=== PATIENT | male | born 1970 | race Caucasian/White ===

== ENCOUNTER 2024-01-16 20:30 | Inpatient (IN) | payer OTHER, SELFPAY ==
[2024-01-16 13:59] VITALS: BMI 31.7
[2024-01-16 14:04] VITALS: BP 176/107
[2024-01-16 14:59] LABS: % Basophils 0.5 % (0-2); % Eosinophils 0.9 % (0-6); % Immature Granulocytes 0.4 % (0-0.5); % Lymphocytes 17.7 % (20.5-51.1); % Monocytes 7.9 % (1.7-9.3); % Neutrophils 72.6 % (42.2-75.2); Absolute Eosinophils 0.1 10^3/uL (0-0.7); Absolute Lymphocytes 1.3 10^3/uL (1.2-3.4); Absolute Monocytes 0.6 10^3/uL (0.1-0.6); Absolute Neutrophils 5.4 10^3/uL (1.4-6.5); Hematocrit 46.5 % (39.0-52.0); Hemoglobin 16.4 g/dL (13.0-18.0); Mean Corp Hgb Conc. 35.3 g/dL (33.0-37.0); Mean Corpuscular Hgb 30.9 pg (27.0-31.0); Mean Corpuscular Volume 87.6 fL (80.0-94.0); Mean Platelet Volume 10.1 fL (7.4-10.4); Nucleated Red Blood Cells % 0 % (-); Platelet Count 187 10^3/uL (130-400); Red Blood Cell Count 5.31 10^6/uL (4.70-6.10); Red Cell Dist. Width 12.2 % (11.5-14.5); White Blood Cell Count 7.4 10^3/uL (4.8-10.8)
[2024-01-16 15:00] VITALS: BP 147/103
[2024-01-16] MEDS: ZOFRAN 4 MG IV ×2 (15:04→20:15)
[2024-01-16 15:23] LABS: ALT (SGPT) 38 U/L (0-50); AST (SGOT) 23 U/L (17-59); Albumin 4.7 g/dl (3.5-5.0); Alkaline Phosphatase 62 U/L (38-126); Blood Urea Nitrogen 21 mg/dl (9-20); Calcium 9.8 mg/dl (8.4-10.2); Carbon Dioxide 30 mmol/L (22-30); Chloride 100 mmol/L (98-107); Estimated Creatinine Clearance 113 ml/min; Glucose 100 mg/dl (70-99); Lipase 59 U/L (23-300); Sodium 140 mmol/L (135-145); Total Bilirubin 1.2 mg/dl (0.2-1.3); Total Protein 7.2 g/dl (6.3-8.2); eGFR > 60.00
[2024-01-16] MEDS: MORPHINE SULFATE 4 MG IV (15:24)
[2024-01-16 16:00] VITALS: BP 157/91
--- NOTE | 2024-01-16 16:05 | ED.GENMED ---
History of Present Illness
<Jayshree Lema PA-C - Last Filed: 01/17/24 08:07>
General
Chief Complaint: Abdominal Pain
Time Seen by Provider: 01/16/24 14:27
History of Present Illness
History of Present Illness:
PT IS A 53 Y/O M
h/o PFO repair
cva x 2
on xarelto
here with generalized/lower abd pain after waking this morning
drank a few drinks last night but didn't feel overly intoxicated
had normal BM
nausea and the pain is moderate and felt really distended and like his belly was gonna explode he says
he has not had cp, sob, fever,
in the parking lot, pt vmoited
still has the pain and nausea
no known vascular disease in abdomen
Past History
<Jayshree Lema PA-C - Last Filed: 01/17/24 08:07>
Past History
ED Past Medical History: CVA, HTN, Hypercholesterolemia and Other (Covid Apr 2020)
Social History
Tobacco: Non-smoker
Family History
Family History: Negative Diabetes, Hypertension or CAD
Review of Systems
<BUD Stahl Last Filed: 01/17/24 08:07>
Review of Systems
Allergies reviewed?: Yes
All Other Systems: Not applicable
Phy Exam
<Jayshree Lema PA-C - Last Filed: 01/17/24 08:07>
Physical Exam
Physical Exam:
GENERAL: Alert , in no apparent distress
EYE: pupils equal and reactive
NECK: Supple
ENT: o/p clr, mmm.
CARDIAC: Regular rate and rhythm .
LUNGS: Clear breath sounds bilaterally, no acute respiratory distress, no wheezes/rales/rhonchi
ABDOMEN: Soft, mild abdominal bloating, no significant fluid wave, normal bowel sounds, mild tenderness to the l periumbilical
NEUROLOGICAL: Alert and oriented, no focal neuro deficits
SKIN: Warm and dry, skin intact.
MUSCULOSKELETAL: No edema, well perfused. neg naeem's sign
PSYCH: Normal and appropriate interaction.
Course
<Jayshree Lema PA-C - Last Filed: 01/17/24 08:07>
Orders/Labs/Results
Orders:
Orders
01/16/24 14:43
Electrocardiogram (*1) Urgent
Reason for Study: Chest Pain
CT Abd/Pel (IV only)-DH only Urgent
Comment:
Reason For Exam: abdominal pain, bloating, nauesa/vomiting
EKG- Treatment ONCE
Ondansetron Injectable [Zofran] 4 mg IV NOW STA
01/16/24 14:50
Complete Blood Count/With Diff Urgent
Comprehensive Metabolic Panel Urgent
Lipase Urgent
01/16/24 Dinner
NPO
Allow oral meds: Yes
Allow clear liquids: No
01/16/24 15:20
Morphine Sulfate 4 mg IV NOW STA
01/16/24 16:45
Urinalysis Reflex To Culture Urgent
Date Specimen was Collected: 01/16/24
Time Specimen was Collected: 16:43
01/16/24 19:32
Add On- LAB Urgent
Tests Added?: lactate
01/16/24 20:01
Admit/Transfer Patient As Directed
Co-Sign Provider:
Level of Care: Inpatient admission
Assign to:: Medical/Surgical
Physician / Group: halima
Diagnosis: SBO
Reason for Hospitalization: SBO
Expected length of stay greater than two midnights?: Yes
ELOS- Estimated Length of Stay in days: 2
I certify the patient meets the requirements for IP care: Yes
Code Status As Directed
Resuscitation Status: Full Code
PRN Pain Medication Management As Directed
May give lesser potent ordered pain med per pt: Yes
preference::
Protocol:: Medication orders for pain may be administered in a
manner that supports deferring to patient preference
when the pt is:
- Requesting an ordered lesser potent pain medication.
Least to most potent pain medications are defined
as: acetaminophen < NSAID < tramadol < opioids
(morphine, oxycodone, hydromorphone).
- Requesting a lesser dose of the same medication IF
ORDERED.
- Requesting a less intrusive route of administration
if both routes are prescribed by the provider (PO <
IV).
01/16/24 20:06
Lactic Acid Urgent
01/16/24 20:13
Ondansetron Injectable [Zofran] 4 mg IV Q6HPRN PRN
01/16/24 21:23
0.9% Sodium Chloride 1000 ml [Nss] 1,000 ml IV 120 mls/hr
Albuterol [ProAIR HFA INHALER] 2 puff INH R Q4HPRN PRN
HYDROmorphone [Dilaudid] 0.5 mg IV Q4HPRN PRN
01/16/24 21:23
Activity As Directed
Activity Level: As Tolerated
Pneumatic Compression Sleeves As Directed
Type: Knee high
Vital Signs As Directed
Frequency: Per unit guidelines
DX Deep Vein Thrombosis Video Routine
01/17/24 06:03
Complete Blood Count/With Diff IN AM
Comprehensive Metabolic Panel IN AM
01/17/24 08:00
Diltiazem Extended Release [Cardizem Cd] 180 mg PO DAILY
Abnormal Lab Results
01/16/24
14:50
Lymphocytes % 17.7 L %
(20.5-51.1)
BUN 21 H mg/dl
(9-20)
Glucose 100 H mg/dl
(70-99)
01/16/24 14:50
01/16/24 14:50
Vital Signs
Initial and Last Documented VS:
Initial Vital Signs
Temp Pulse Resp BP Pulse Ox
98.4 F 72 18 176/107 99
01/16/24 14:04 01/16/24 14:04 01/16/24 14:04 01/16/24 14:04 01/16/24 14:04
Last Documented Vital Signs
Temp Pulse Resp BP Pulse Ox
98.5 F 63 17 156/81 95
01/17/24 07:58 01/17/24 07:58 01/17/24 07:58 01/17/24 07:58 01/17/24 07:58
<Rome Mckenzie PA-C - Last Filed: 01/16/24 19:14>
Orders/Labs/Results
Orders:
Orders
01/16/24 14:43
Electrocardiogram (*1) Urgent
Reason for Study: Chest Pain
CT Abd/Pel (IV only)-DH only Urgent
Comment:
Reason For Exam: abdominal pain, bloating, nauesa/vomiting
EKG- Treatment ONCE
Ondansetron Injectable [Zofran] 4 mg IV NOW STA
01/16/24 14:50
Complete Blood Count/With Diff Urgent
Comprehensive Metabolic Panel Urgent
Lipase Urgent
01/16/24 Dinner
NPO
Allow oral meds: Yes
Allow clear liquids: No
01/16/24 15:20
Morphine Sulfate 4 mg IV NOW STA
01/16/24 16:45
Urinalysis Reflex To Culture Urgent
Date Specimen was Collected: 01/16/24
Time Specimen was Collected: 16:43
01/16/24 19:32
Add On- LAB Urgent
Tests Added?: lactate
01/16/24 20:01
Admit/Transfer Patient As Directed
Co-Sign Provider:
Level of Care: Inpatient admission
Assign to:: Medical/Surgical
Physician / Group: halima
Diagnosis: SBO
Reason for Hospitalization: SBO
Expected length of stay greater than two midnights?: Yes
ELOS- Estimated Length of Stay in days: 2
I certify the patient meets the requirements for IP care: Yes
Code Status As Directed
Resuscitation Status: Full Code
PRN Pain Medication Management As Directed
May give lesser potent ordered pain med per pt: Yes
preference::
Protocol:: Medication orders for pain may be administered in a
manner that supports deferring to patient preference
when the pt is:
- Requesting an ordered lesser potent pain medication.
Least to most potent pain medications are defined
as: acetaminophen < NSAID < tramadol < opioids
(morphine, oxycodone, hydromorphone).
- Requesting a lesser dose of the same medication IF
ORDERED.
- Requesting a less intrusive route of administration
if both routes are prescribed by the provider (PO <
IV).
01/16/24 20:06
Lactic Acid Urgent
01/16/24 20:13
Ondansetron Injectable [Zofran] 4 mg IV Q6HPRN PRN
01/16/24 21:23
0.9% Sodium Chloride 1000 ml [Nss] 1,000 ml IV 120 mls/hr
Albuterol [ProAIR HFA INHALER] 2 puff INH R Q4HPRN PRN
HYDROmorphone [Dilaudid] 0.5 mg IV Q4HPRN PRN
01/16/24 21:23
Activity As Directed
Activity Level: As Tolerated
Pneumatic Compression Sleeves As Directed
Type: Knee high
Vital Signs As Directed
Frequency: Per unit guidelines
DX Deep Vein Thrombosis Video Routine
01/17/24 06:03
Complete Blood Count/With Diff IN AM
Comprehensive Metabolic Panel IN AM
01/17/24 08:00
Diltiazem Extended Release [Cardizem Cd] 180 mg PO DAILY
Abnormal Lab Results
01/16/24
14:50
Lymphocytes % 17.7 L %
(20.5-51.1)
BUN 21 H mg/dl
(9-20)
Glucose 100 H mg/dl
(70-99)
01/16/24 14:50
01/16/24 14:50
Vital Signs
Initial and Last Documented VS:
Initial Vital Signs
Temp Pulse Resp BP Pulse Ox
98.4 F 72 18 176/107 99
01/16/24 14:04 01/16/24 14:04 01/16/24 14:04 01/16/24 14:04 01/16/24 14:04
Last Documented Vital Signs
Temp Pulse Resp BP Pulse Ox
98.5 F 63 17 156/81 95
01/17/24 07:58 01/17/24 07:58 01/17/24 07:58 01/17/24 07:58 01/17/24 07:58
<Jayshree Lema PA-C - Last Filed: 01/17/24 08:07>
MDM/Problems Addressed
Differential Diagnosis Includes:
divertic, AAA, dissection, gastritis, pnaireatits
MDM/Problems Addressed:
53 y/o M
h/o cva
here with abd pain,bloating nausea
no h/o alcohol abuse
mild tedneress, more pain than pt is tender
will w/u with labs, ekg, ct scan
d/w ed attending who agreed;
<oRme Mckenzie PA-C - Last Filed: 01/16/24 19:14>
*Critical Care Note
Total Time (30-74mins, 75-104mins- exclusive of procedures): Not Applicable
<Rome Mckenzie PA-C - Last Filed: 01/16/24 19:14>
Update Note
Update Note:
01/16/2024 1908 PM care assumed from Jayshree Lema PA-C pending CT images. CT report suggestive of developing small bowel obstruction. On reassessment the patient does have significant abdominal discomfort and nausea after attempting to drink
oral fluids. Given his worsening symptoms despite analgesics will place NG tube and admit to the hospitalist service for observation and reevaluation in the morning.
ED Attending Note
<Jayshree Lema PA-C - Last Filed: 01/17/24 08:07>
-
Portions of this chart may have been created with voice recognition software.� Occasional wrong word or��sound alike� substitutions may have occurred due to the inherent limitations of voice recognition software.
Discharge Plan
Departure
Patient Disposition: Admit
Date of Disposition: 01/16/24
Time of Disposition: 19:09
Presentation/result/management discussed w/ accepting MD/DO: Hospitalist
Discharge Problem:
Partial small bowel obstruction
Interventions
Interventions:
*Risk Screen - Suicide Last Done: 01/16/24 14:04
*General Assessment Last Done: 01/16/24 14:04
*Neglect/Abuse Screening Last Done: 01/16/24 14:04
ED- Fall Risk Assessment Last Done: 01/16/24 15:07
*ED COVID-19 Vaccine History Last Done: 01/16/24 21:36
*Nursing Disposition Last Done: 01/16/24 21:36
XW-Zuufii-Fpqaqbtqkm Assessment Last Done: 01/16/24 15:07
Discharge Date and Time
Discharge Date/Time: 01/16/24 21:37
[2024-01-16 17:04] LABS: Urine Albumin Negative (Neg - Trace); Urine Bilirubin Negative (Negative); Urine Character Clear (Clear); Urine Color Yellow; Urine Glucose Negative (Negative); Urine Ketone Negative (Negative); Urine Leukocyte Negative (Negative); Urine Nitrite Negative (Negative); Urine Occult Blood Negative (Negative); Urine Urobilinogen Negative (Neg - 1+)
--- NOTE | 2024-01-16 20:03 | HPS.HSE ---
Family Physician
-
Family Physician: Erick Beaver
Chief Complaint
-
abdominal pain
History of Present Illness
53-year-old male past medical history of cryptogenic CVA, atrial fibrillation on Xarelto, patent khan ovale status post repair, cardiomyopathy, hypertension, presenting with generalized lower abdominal pain after rehab this morning. He had 6
alcoholic drinks last night he did not feel intoxicated. He was only been drinking on the weekends recently. He had a normal bowel movement this morning although smaller. He has nausea and abdominal distention. He denies chest pain or shortness
of breath. He denies fevers or chills.
He denies any prior abdominal surgeries.
Medical History
Past Medical History
Past Medical History: Reports Other (cryptogenic CVA, atrial fibrillation on Xarelto, patent khan ovale status post repair, cardiomyopathy, hypertension,)
Past Surgical History: Reports None
Social History
Tobacco: Non-smoker
Alcohol: Occasional
Drug: None
Family History
Family History: Not pertinent
Allergies / Home Medications
Allergies reflects when Allergies were last updated in [facility].
Home Medications with original date entered in [facility]
Allergy/Medication List:
Allergies
Allergy/AdvReac Type Severity Reaction Status Date / Time
azithromycin Allergy Hives Verified 01/16/24 14:04
[From Zithromax Z-Tj]
Home Medications
atorvastatin 40 mg tablet 40 mg PO DAILY High cholesterol 04/21/20
albuterol sulfate 90 mcg/actuation aerosol inhaler 2 puff inhalation R Q4HPRN PRN sob/cough ##2 05/01/20
diltiazem HCl 180 mg capsule,24 hr,extended release 180 mg PO DAILY 01/13/22
pgwqrwrv-paupdtzu-udqty acid 400 mcg-vit K 20 mcg-lycop 300 mcg tablet 1 tab PO DAILY 01/13/22
rivaroxaban 20 mg tablet (Xarelto) 20 mg PO DAILY 01/13/22
famotidine 40 mg tablet 40 mg PO DAILY 01/16/24
Review of Systems
-
History Source: Patient
A 12 point ROS was completed and negative except as noted: Yes
Constitutional: Reports No Symptoms
EENT: Reports No Symptoms
Respiratory: Reports No Symptoms
Cardiac: Reports No Symptoms
Abdomen/GI: Reports See HPI
: Reports No Symptoms
Musculoskeletal: Reports No Symptoms
Skin: Reports No Symptoms
Neurological: Reports No Symptoms
Endocrine: Reports No Symptoms
Hematologic/Lymphatic: Reports No Symptoms
Psych: Reports No Symptoms
Physical Exam
Vital Signs
Vital Signs
Temp Pulse Resp BP Pulse Ox
98.4 F 79 21 157/91 97
01/16/24 14:04 01/16/24 18:30 01/16/24 18:30 01/16/24 16:00 01/16/24 18:30
Physical Exam
General: Well Developed, Well Nourished and No Apparent Distress
HEENT: NormoCephalic, Moist mucous membranes and Atraumatic
Respiratory: Clear
Cardiac: S1/S2 and Regular Rhythm; No Murmur or Rub
GI: Soft, Normal Bowel Sounds, Tender and Distended; No Organomegaly
Rectal: Deferred by Provider
Musculoskeletal: No Clubbing, No Cyanosis and No Edema
Skin: No Rash
Neuro: Nonfocal/grossly intact
Laboratory Results
-
01/16/24 14:50
01/16/24 14:50
Laboratory Results
Total Bilirubin 1.2 mg/dl (0.2-1.3) 01/16/24 14:50
AST 23 U/L (17-59) 01/16/24 14:50
ALT 38 U/L (0-50) 01/16/24 14:50
Alkaline Phosphatase 62 U/L (38-126) 01/16/24 14:50
Lipase 59 U/L (23-300) 01/16/24 14:50
Data Reviewed
-
Lab Data: Labs Reviewed by me
Old Records: Reviewed
Impression/Plan
-
IMPRESSION:
PLAN:
# Mild small bowel obstruction
-CT abdomen pelvis shows developing mild small bowel obstruction in the mid left abdomen versus ileus
-N.p.o.
-IV fluids
-Zofran, Dilaudid
-NG tube to be placed
-Hold Xarelto
-General Surgery consulted
History of cryptogenic CVA
Patent khan ovale status post repair
History of paroxysmal atrial fibrillation
-Hold Xarelto
-Continue diltiazem if able
History of cardiomyopathy
Essential hypertension
Full code
DVT prophylaxis�SCDs
N.p.o.
[2024-01-16 21:33] VITALS: BP 173/99; BMI 30.9
[2024-01-16] MEDS: NSS 1000 IV (21:48)
[2024-01-16 23:20] VITALS: BP 162/92
--- NOTE | 2024-01-16 23:42 | TRANSFER ---
Received pt from ED via stretcher. Pt able to transfer to standing scale with minimal assistance. AAO*4, VSS, patient denies any chest pain or shortness of breath. NGT (R Nare) auscultated +placement and hooked to low int. suction as per order.
All orders reviewed and acknowledged. Plan of care discussed with patient. Bed in low position with call wiseman in reach.
[2024-01-17] MEDS: ANESTHETIC LOZENGE 1 LOZENGE PO ×3 (02:31→20:34)
[2024-01-17] MEDS: NSS 1000 IV ×3 (05:29→20:33)
[2024-01-17 06:25] LABS: % Basophils 0.2 % (0-2); % Eosinophils 0.6 % (0-6); % Immature Granulocytes 0.4 % (0-0.5); % Lymphocytes 13.8 % (20.5-51.1); % Monocytes 4.9 % (1.7-9.3); % Neutrophils 80.1 % (42.2-75.2); Absolute Eosinophils 0.1 10^3/uL (0-0.7); Absolute Lymphocytes 1.4 10^3/uL (1.2-3.4); Absolute Monocytes 0.5 10^3/uL (0.1-0.6); Absolute Neutrophils 8.1 10^3/uL (1.4-6.5); Hematocrit 45.2 % (39.0-52.0); Hemoglobin 15.7 g/dL (13.0-18.0); Mean Corp Hgb Conc. 34.7 g/dL (33.0-37.0); Mean Corpuscular Hgb 30.7 pg (27.0-31.0); Mean Corpuscular Volume 88.3 fL (80.0-94.0); Mean Platelet Volume 10.3 fL (7.4-10.4); Nucleated Red Blood Cells % 0 % (-); Platelet Count 194 10^3/uL (130-400); Red Blood Cell Count 5.12 10^6/uL (4.70-6.10); Red Cell Dist. Width 12.2 % (11.5-14.5); White Blood Cell Count 10.1 10^3/uL (4.8-10.8)
[2024-01-17 06:59] LABS: ALT (SGPT) 32 U/L (0-50); AST (SGOT) 23 U/L (17-59); Albumin 4.3 g/dl (3.5-5.0); Alkaline Phosphatase 56 U/L (38-126); Blood Urea Nitrogen 23 mg/dl (9-20); Carbon Dioxide 26 mmol/L (22-30); Chloride 103 mmol/L (98-107); Estimated Creatinine Clearance 102 ml/min; Glucose 116 mg/dl (70-99); Potassium 4.2 mmol/L (3.5-5.1); Sodium 139 mmol/L (135-145); Total Bilirubin 1.5 mg/dl (0.2-1.3); Total Protein 6.7 g/dl (6.3-8.2); eGFR > 60.00
[2024-01-17 07:58] VITALS: BP 156/81
[2024-01-17 07:58] LABS: C-Reactive Protein < 5.00 mg/L (0.0-10.00)
[2024-01-17] MEDS: CARDIZEM CD 180 MG PO (10:03)
[2024-01-17] MEDS: PROTONIX IV 40 MG IV (12:02)
[2024-01-17] MEDS: NSS (PRESERVATIVE FREE) 10 ML IV (12:02)
--- NOTE | 2024-01-17 12:34 | CM ---
publishing manager reviewed patient's chart and met with patient and patient lives with a friend in a 2 story home, vianneyrhonda is indepdent with adl's and ambulation, no dme, vianneyrhonda drives.
PCP: Dr Summers
Pharmacy: [facility] in [place]
Plan; Home when stable, no needs.
--- NOTE | 2024-01-17 13:07 | CON.GS ---
Medical History
-
Chief Complaint: Abdominal pain
History of Present Illness:
Mr Desai is a 53 yo male with a history of AFIB on Xarelto (LD 01/15), cryptogenic CVA, and PFO with repair with no prior abdominal surgeries who developed acute onset of severe abdominal pain yesterday which continued to worsen with development
of nausea and intractable vomiting. He notes that his abdomen was firm and quite distended on arrival to the ED. An NGT was placed with symptomatic relief. His last BM was yesterday morning before onset of symptoms and he has not had one since
although he does note he has passed some flatus today. He reports he did have some diarrhea a few days prior to onset of these symptoms but it quickly resolved. He denies fevers or chills. He does note a sore throat with the NGT in place.
Past Medical History
Past Medical History: Arrhythmias (afib on xarelto), CVA (cryptogenic in 2017), HTN and Other (PFO, cardiomyopathy)
Past Surgical History: Cardiac (PFO repair)
Social History
Tobacco: Non-Smoker
Alcohol: Occasional (some binge drinking on weekends)
Family History
Family History: Reviewed & Not Pertinent
Allergies / Home Medications
Allergy/AdvReac Type Severity Reaction Status Date / Time
azithromycin Allergy Hives Verified 01/16/24 14:04
[From Zithromax Z-Tj]
�Medication �Instructions �Recorded �Confirmed �Type
atorvastatin 40 mg tablet 40 mg PO DAILY High cholesterol 04/21/20 01/16/24 History
albuterol sulfate 90 mcg/actuation 2 puff inhalation R Q4HPRN PRN 05/01/20 01/16/24 Rx
aerosol inhaler sob/cough ##2
diltiazem HCl 180 mg capsule,24 180 mg PO DAILY Arrhythmia 01/13/22 01/16/24 History
hr,extended release
zzuscgxr-ynzktdfe-vrkth acid 400 1 tab PO DAILY Supplement 01/13/22 01/16/24 History
mcg-vit K 20 mcg-lycop 300 mcg
tablet
rivaroxaban 20 mg tablet (Xarelto) 20 mg PO DAILY Blood Clot 01/13/22 01/16/24 History
Prevention/Tx
famotidine 40 mg tablet 40 mg PO DAILY Gastrointestinal 01/16/24 01/16/24 History
Issue
Review of Systems
-
History Source: Patient and Family
A 10 point review of systems was completed, and was negative except as per HPI.
Physical Exam
Vital Signs
Temp Pulse Resp BP Pulse Ox
98.5 F 63 17 156/81 95
01/17/24 07:58 01/17/24 07:58 01/17/24 07:58 01/17/24 07:58 01/17/24 07:58
01/16/24 01/17/24 01/18/24
06:59 06:59 06:59
Actual Weight 106.339 kg
Body Mass Index (BMI) 30.9
Lab Results
01/17/24 06:03
01/17/24 06:03
WBC 10.1 10^3/uL (4.8-10.8) 01/17/24 06:03
Hgb 15.7 g/dL (13.0-18.0) 01/17/24 06:03
Hct 45.2 % (39.0-52.0) 01/17/24 06:03
Plt Count 194 10^3/uL (130-400) 01/17/24 06:03
Abs Immat Gran (auto) 0.0 10^3/uL (0-0.05) 01/17/24 06:03
Neutrophils % 80.1 % (42.2-75.2) H 01/17/24 06:03
Physical Exam
General: Well Developed and Well Nourished
HEENT: Moist Mucous Membranes
Respiratory: Non Labored Respirations
GI: Soft, Tender (mild to RLQ), Distended (mild to moderate) and Other (bilious output from NGT)
Skin: Warm and Dry
Neuro: Awake, Alert and AO x 3
Psych: Calm
Data Reviewed
-
CT Scan: Image Personally Visualized and interpreted, Report Reviewed by me, Discussed with Physician and Discussed with Patient
Labs: Labs Reviewed by me, Discussed with Physician and Discussed with Patient
Assessment / Plan
-
Mr Desai is a 53 yo male with a history of AFIB on Xarelto (LD 01/15), cryptogenic CVA, and PFO with repair with no prior abdominal surgeries who developed acute onset of severe abdominal pain yesterday which continued to worsen with development
of nausea and intractable vomiting. NGT placed in the ED with improvement in symptoms. Now passing some flatus. CT imaging without Po contrast reviewed. Dilated loops of bowel in the left abdomen, possible ileus vs partial sbo of uncertain etiology.
No leukocytosis. AFVSS.
--Hold Xarelto in case surgical intervention warranted
--Continue NGT to suction
--Plan SBFT with oral contrast to further evaluate
--NPO except ice chips
--Medical management as per primary team
--- NOTE | 2024-01-17 13:45 | W.PN.HOSP.TC ---
Today's Communication/Plan
-
for SBFT today
maintain NPO/IVF/supportive care
Assessment / Plan
Assessment / Plan
CTG a/p
Developing mild small bowel obstruction in the mid left abdomen versus ileus.
Moderate diverticulosis.
Mild prostate hypertrophy

1. Small bowel obstruction
-Comes in with nausea vomiting, inability to pass bowel movement
-CT abdomen pelvis showing possible early small bowel obstruction
-Patient denies of having any abdominal surgery in the past/no previous episodes of small bowel obstruction
-NG tube placed and currently on intermittent suction
-Maintain on IV fluids/n.p.o.
-Maintain on antiemetics/pain medication
-General Surgery consulted and help appreciated, plan to get SBFT today
2. Cryptogenic CVA
h/o Patent khan ovale status post repair
History of paroxysmal atrial fibrillation
-Hold Xarelto
-Continue diltiazem if able
History of cardiomyopathy
Essential hypertension
Full code
DVT prophylaxis�SCDs
Total time spent : 52 mins
Anticipated Discharge: > 48 hours
Subjective/Interval History
-
Date of Service: January 17, 2024
Denies having abdominal pain/nausea
passing some gas
Objective Data
-
Labs:
Laboratory Results
01/17/24
06:03
WBC 10.1
Hgb 15.7
Hct 45.2
Plt Count 194
Sodium 139
Potassium 4.2
Chloride 103
Carbon Dioxide 26
BUN 23 H
Creatinine 1.1
Glucose 116 H
Calcium 9.0
Total Bilirubin 1.5 H
AST 23
ALT 32
Alkaline Phosphatase 56
Vital Signs:
Vital Signs
Temp Pulse Resp BP Pulse Ox
98.5 F 63 17 156/81 95
01/17/24 07:58 01/17/24 07:58 01/17/24 07:58 01/17/24 07:58 01/17/24 07:58
I&O
01/16/24 01/17/24 01/18/24
06:59 06:59 06:59
Intake Total 720 / 720
Output Total 100 / 100
Balance 620 / 620
Review of Systems
-
Respiratory: Reports No Symptoms
Cardiac: Reports No Symptoms
Abdomen/GI: Denies Abdominal Pain or Nausea
Physical Exam
-
General: No Apparent Distress and Comfortable
HEENT: Negative Oxygen
Respiratory: Clear to Auscultation
Cardiac: Regular Rhythm and S1/S2; Negative Murmur or Rub
GI: Soft and Other (bowel sounds)
Musculoskeletal: No Edema
Neuro: Awake, Alert, Oriented, No Motor Deficits and Nonfocal/Grossly Intact
Psych: Calm
[2024-01-17 15:22] VITALS: BP 135/76
[2024-01-17] MEDS: MELATONIN 5 MG PO (21:32)
[2024-01-17 23:30] VITALS: BP 137/65
[2024-01-18] MEDS: NSS 1000 IV (05:02)
[2024-01-18 07:30] VITALS: BP 148/76
[2024-01-18] MEDS: PROTONIX IV 40 MG IV (08:05)
[2024-01-18] MEDS: NSS (PRESERVATIVE FREE) 10 ML IV (08:06)
[2024-01-18] MEDS: CARDIZEM CD 180 MG PO (08:06)
[2024-01-18 08:46] LABS: Hematocrit 43.6 % (39.0-52.0); Hemoglobin 15.3 g/dL (13.0-18.0); Mean Corp Hgb Conc. 35.1 g/dL (33.0-37.0); Mean Corpuscular Hgb 31.2 pg (27.0-31.0); Mean Platelet Volume 10.2 fL (7.4-10.4); Platelet Count 165 10^3/uL (130-400); White Blood Cell Count 5.7 10^3/uL (4.8-10.8)
[2024-01-18 09:33] LABS: Blood Urea Nitrogen 21 mg/dl (9-20); Calcium 8.7 mg/dl (8.4-10.2); Carbon Dioxide 26 mmol/L (22-30); Chloride 103 mmol/L (98-107); Estimated Creatinine Clearance 102 ml/min; Glucose 91 mg/dl (70-99); Sodium 140 mmol/L (135-145); eGFR > 60.00
[2024-01-18 15:00] VITALS: BP 141/72
--- NOTE | 2024-01-18 15:06 | W.PN.HOSP.TC ---
Today's Communication/Plan
-
trial of CL diet
advancement per GS
xarelto to be resumed
Assessment / Plan
Assessment / Plan
CTG a/p
Developing mild small bowel obstruction in the mid left abdomen versus ileus.
Moderate diverticulosis.
Mild prostate hypertrophy

1. Small bowel obstruction
-Comes in with nausea vomiting, inability to pass bowel movement
-CT abdomen pelvis showing possible early small bowel obstruction
-Patient denies of having any abdominal surgery in the past/no previous episodes of small bowel obstruction
-SBFT showing all contrast passing to large intestine rapidly, patient having liquid diarrhea as well
-NGT has been removed
-Patient have been started on CL Diet , advancement per GS
2. Cryptogenic CVA
h/o Patent khan ovale status post repair
History of paroxysmal atrial fibrillation
-Resume on Xarelto
-Continue diltiazem
History of cardiomyopathy
Essential hypertension
Full code
DVT prophylaxis�SCDs
Anticipated Discharge: Within 24 hours
Subjective/Interval History
-
Date of Service: January 18, 2024
patient having liquid diarrhea after getting oral contrast for the SBFT
no abd pain/nausea/vomiting
afebrile
Objective Data
-
Labs:
Laboratory Results
01/18/24
08:35
WBC 5.7
Hgb 15.3
Hct 43.6
Plt Count 165
Sodium 140
Potassium 4.0
Chloride 103
Carbon Dioxide 26
BUN 21 H
Creatinine 1.1
Glucose 91
Calcium 8.7
Vital Signs:
Vital Signs
Temp Pulse Resp BP Pulse Ox
98.1 F 60 16 148/76 97
01/18/24 07:30 01/18/24 07:30 01/18/24 07:30 01/18/24 07:30 01/18/24 07:30
I&O
01/17/24 01/18/24 01/19/24
06:59 06:59 06:59
Intake Total 720 / 720 210 / 210
Output Total 100 / 100 850 / 850
Balance 620 / 620 -640 / -640
Review of Systems
-
Respiratory: Reports No Symptoms
Cardiac: Reports No Symptoms
Abdomen/GI: Reports Diarrhea; Denies Abdominal Pain, Nausea or Vomiting
Physical Exam
-
General: No Apparent Distress and Comfortable
HEENT: Negative Oxygen
Respiratory: Clear to Auscultation
Cardiac: Regular Rhythm and S1/S2; Negative Murmur or Rub
GI: Soft, Nontender, Nondistended and Normal Bowel Sounds
Musculoskeletal: No Edema
Neuro: Awake, Alert, Oriented, No Motor Deficits and Nonfocal/Grossly Intact
Psych: Calm
--- NOTE | 2024-01-18 15:28 | W.PN.GS2 ---
Addendum entered and electronically signed by Solo Loving MD 01/18/24 16:55:
I saw and examined the patient independently.
The Nuclear Plant Equipment Operator's note was reviewed and I agree with the note, assessment and plan except where noted below.
Comment: This is a 53-year-old male with a history of A-fib on Xarelto, who presents with abdominal pain in the setting of no previous surgery. Imaging concerning for ileus versus partial small bowel obstruction with symptomatic improvement after
placement of an NG tube.
Small bowel follow-through ordered: Normal.
NG tube removed, okay to start clear liquid diet, can advance to a low residue diet tomorrow.
If tolerating diet okay to resume p.o. anticoagulation tomorrow.
Okay to DC IV fluids now and okay to shower.
Continue medical management per primary team.
General surgery will continue to follow.
All questions answered, Patient is agreeable to the plan of care above.
Original Note:
Today's Communication / Plan
-
d/c NGT
trial of clear liquids
Assessment / Plan
-
53 yo male with history of AFIB on Xarelto (LD 01/15), cryptogenic CVA, and PFO with repair and no prior abdominal surgery presenting with Ileus versus partial SBO of unclear etiology. Symptomatic improvement with placement of NGT
AFVSS
No leukocytosis
SBFT ordered for today with normal imaging findings
--D/C NGT
--Start CLD
--If tolerating clears, will advance to LRD tomorrow
--If tolerating diet, ok to resume PO AC tomorrow
--D/C IVF
--Ok to shower
--Medical management as per primary team
Subjective Data
-
Date of Service: January 18, 2024
Patient seen and examined at bedside with Dr. Loving. Denies abdominal pain. Denies n/v. Passing flatus and liquid bm's.
Objective Data
-
Intake and Output
01/17/24 01/18/24 01/19/24
06:59 06:59 06:59
Intake Total 720 / 720 210 / 210
Output Total 100 / 100 850 / 850
Balance 620 / 620 -640 / -640
Intake:
Oral fluids 0 / 0
IV fluids (Total) 720 / 720
Tube feeding 30 / 30
Amount instilled into GI Tube ( 180 / 180
Total)
[place] Sump 180 / 180
Output:
Gastrointestinal tube output ( 100 / 100 250 / 250
Total)
[place] Sump 100 / 100 250 / 250
Urine, Voided 600 / 600
Other:
Number of approximated MODERATE 1 1
amounts of urine
Number of approximated LARGE 1
amounts of urine
Vital Signs
Temp Pulse Resp BP Pulse Ox
98.1 F 60 16 148/76 97
01/18/24 07:30 01/18/24 07:30 01/18/24 07:30 01/18/24 07:30 01/18/24 07:30
Lab Results
01/18/24 08:35
01/18/24 08:35
Calcium 8.7 mg/dl (8.4-10.2) 01/18/24 08:35
Magnesium 2.0 mg/dl (1.6-2.3) 01/18/24 08:35
Total Bilirubin 1.5 mg/dl (0.2-1.3) H 01/17/24 06:03
AST 23 U/L (17-59) 01/17/24 06:03
ALT 32 U/L (0-50) 01/17/24 06:03
Alkaline Phosphatase 56 U/L (38-126) 01/17/24 06:03
Total Protein 6.7 g/dl (6.3-8.2) 01/17/24 06:03
Albumin 4.3 g/dl (3.5-5.0) 01/17/24 06:03
Physical Exam
-
NAD
ABD soft, nd, nt
NGT with minimal ouptuts
[2024-01-18 15:55] VITALS: BP 141/72
[2024-01-18] MEDS: XARELTO 20 MG PO (16:27)
[2024-01-18] MEDS: MELATONIN 5 MG PO (21:43)
[2024-01-18 23:30] VITALS: BP 136/78
[2024-01-19 07:00] VITALS: BP 146/87
[2024-01-19] MEDS: XARELTO 20 MG PO (08:24)
[2024-01-19] MEDS: LIPITOR 40 MG PO (08:24)
[2024-01-19] MEDS: CARDIZEM CD 180 MG PO (08:24)
[2024-01-19] MEDS: PEPCID 40 MG PO (08:24)
[2024-01-19] MEDS: NSS (PRESERVATIVE FREE) 10 ML IV (08:27)
[2024-01-19] MEDS: PROTONIX IV 40 MG IV (08:27)
--- NOTE | 2024-01-19 10:34 | W.PN.GS2 ---
Today's Communication / Plan
-
-- LRD for 1-2 weeks then advance back to normal
-- OK for DC from surgical perspective if tolerates diet
Assessment / Plan
-
53 yo male with history of AFIB on Xarelto (LD 01/15), cryptogenic CVA, and PFO with repair and no prior abdominal surgery presenting with Ileus versus partial SBO of unclear etiology.
Symptomatic improvement with placement of NGT
AFVSS
No leukocytosis
SBFT with no evidence of an obstruction
Clinical and radiographic improvement
-- LRD for 1-2 weeks then advance back to normal
-- OK for DC from surgical perspective if tolerates diet
Subjective Data
-
Date of Service: January 19, 2024
No complaints or issues. Feels almost back to normal. No nausea or vomiting. Passing flatus and stools.
Objective Data
-
Intake and Output
01/18/24 01/19/24 01/20/24
06:59 06:59 06:59
Intake Total 210 / 210 480 / 480
Output Total 850 / 850
Balance -640 / -640 480 / 480
Intake:
Oral fluids 0 / 0 480 / 480
Tube feeding 30 / 30
Amount instilled into GI Tube ( 180 / 180
Total)
[place] Sump 180 / 180
Output:
Gastrointestinal tube output ( 250 / 250
Total)
[place] Sump 250 / 250
Urine, Voided 600 / 600
Other:
Number of approximated MODERATE 1 1
amounts of urine
Vital Signs
Temp Pulse Resp BP Pulse Ox
97.9 F 62 18 146/87 97
01/19/24 07:00 01/19/24 07:00 01/19/24 07:00 01/19/24 07:00 01/19/24 07:00
Lab Results
01/18/24 08:35
01/18/24 08:35
Calcium 8.7 mg/dl (8.4-10.2) 01/18/24 08:35
Magnesium 2.0 mg/dl (1.6-2.3) 01/18/24 08:35
Total Bilirubin 1.5 mg/dl (0.2-1.3) H 01/17/24 06:03
AST 23 U/L (17-59) 01/17/24 06:03
ALT 32 U/L (0-50) 01/17/24 06:03
Alkaline Phosphatase 56 U/L (38-126) 01/17/24 06:03
Total Protein 6.7 g/dl (6.3-8.2) 01/17/24 06:03
Albumin 4.3 g/dl (3.5-5.0) 01/17/24 06:03
Physical Exam
-
Gen: NAD
Abd: soft, NT/ND, non-peritoneal
--- NOTE | 2024-01-19 15:00 | W.PN.HOSP.TC ---
Today's Communication/Plan
-
Discharge home if tolerates low residue lunch
Assessment / Plan
Assessment / Plan
CTG a/p
Developing mild small bowel obstruction in the mid left abdomen versus ileus.
Moderate diverticulosis.
Mild prostate hypertrophy

1. Small bowel obstruction
-Comes in with nausea vomiting, inability to pass bowel movement
-CT abdomen pelvis showing possible early small bowel obstruction
-Patient denies of having any abdominal surgery in the past/no previous episodes of small bowel obstruction
-SBFT showing all contrast passing to large intestine rapidly, patient having liquid diarrhea as well
-NGT has been removed
-Patient tolerated clear liquid diet, advance to low residue diet.
2. Cryptogenic CVA
h/o Patent khan ovale status post repair
History of paroxysmal atrial fibrillation
-Resume on Xarelto
-Continue diltiazem
History of cardiomyopathy
Essential hypertension
Full code
DVT prophylaxis�SCDs
Anticipated Discharge: Today
Subjective/Interval History
-
Date of Service: January 19, 2024
Subjective feeling better
No abdominal pain/nausea/vomiting
Having bowel movement
Objective Data
-
Vital Signs:
Vital Signs
Temp Pulse Resp BP Pulse Ox
97.9 F 62 18 146/87 97
01/19/24 07:00 01/19/24 07:00 01/19/24 07:00 01/19/24 07:00 01/19/24 07:00
I&O
01/18/24 01/19/2424
06:59 06:59 06:59
Intake Total 210 / 210 480 / 480
Output Total 850 / 850
Balance -640 / -640 480 / 480
Review of Systems
-
Respiratory: Reports No Symptoms
Cardiac: Reports No Symptoms
Abdomen/GI: Reports No Symptoms
Physical Exam
-
General: No Apparent Distress and Comfortable
HEENT: Negative Oxygen
Respiratory: Clear to Auscultation
Cardiac: Regular Rhythm and S1/S2; Negative Murmur or Rub
GI: Soft, Nontender, Nondistended and Normal Bowel Sounds
Musculoskeletal: No Edema
Neuro: Awake, Alert, Oriented, No Motor Deficits and Nonfocal/Grossly Intact
Psych: Calm
--- NOTE | 2024-01-20 16:23 | W.DCSUMMARY ---
Discharge Summary
Discharge Data
Date of Admission: 01/16/24
Date of Discharge: 01/19/24
-
Pending Results: No
Hospital Course
Discharging Physician : Dr Chacho Narvaez
Disposition : Home
Primary care physician : Dr Erick Beaver
Principal Discharge diagnosis :
Small bowel obstruction/ileus
Chronic Discharge diagnosis :
History of cryptogenic stroke
Patent foramen ovale post repair
Paroxysmal atrial fibrillation
History of cardiomyopathy
Essential hypertension
Hospital Course :
Patient is a 53-year-old male with above-mentioned past medical history came to ER with new onset of abdominal pain and able to pass gas/bowel movement. Patient had nausea and abdominal distention. A CT abdomen pelvis in the ER showing possible
concern of ileus versus partial small bowel obstruction. Patient does not have any previous episode of small bowel issues no previous abdominal surgeries. Patient was managed conservatively and was followed by general surgery during this
hospitalization. patient had small bowel follow-through study showing contrast passing through small bowel and into large intestine rapidly without any problem. Patient was started on trial of liquid diet with advancement to solid food, which
patient was able to tolerate without any problem. Patient was discharged with low residue diet recommendation for 2 weeks postdischarge.
Important imaging findings :
None
Procedure findings :
None
Discharge Plan
-
Patient Disposition: Home (Routine Discharge)
Discharge Diagnosis/Procedures: Ileus
Condition: Fair
Diet: Other diet
Additional Diets: Low residue diet for 2 weeks
Activity: As tolerated
Driving Restrictions: As prior to admission
Bathing Restrictions: OK to Shower
Referrals:
Erick Beaver MD [Family Provider] - in one week
Prescriptions:
Continued
atorvastatin 40 MG tablet
40 mg PO DAILY
albuterol sulfate 1 PUFF HFA aerosol inhaler
2 puff inhalation R Q4HPRN PRN (Reason: sob/cough) Qty: 2 0RF
Xarelto 20 mg Tablet
20 mg PO DAILY
diltiazem HCl 180 mg Capsule,Extended Release 24 Hr
180 mg PO DAILY
[id number]-vit K-lycop 400-20-300 mcg Tablet
1 tab PO DAILY
famotidine 40 mg tablet
40 mg PO DAILY
melatonin 5 mg Tablet
5 mg PO HS PRN (Reason: sleep)
Discharge Orders:
Discharge Patient (As Directed); Ordered 01/19/24
Ordered By: Chacho Narvaez
Discharge Date and Time
Discharge Date/Time: 01/19/24 16:38
Print Language: [place]
== END 2024-01-19 16:38 | disposition home or self-care (01) | DRG 389 ==
LOC: 4 WEST ACU 20:30
PROVIDERS: Physician Assistant; Registered Nurse; ADMITTING PHYSICIAN Hospitalist; ATTENDING PHYSICIAN Hospitalist; EMERGENCY PHYSICIAN Emergency Medicine; FAMILY PHYSICIAN Family Medicine; OTHER PHYSICIAN Surgery
DX: K56.600 Partial intestinal obstruction, unspecified as to cause (principal); I42.9 Cardiomyopathy, unspecified; K57.90 Diverticulosis of intestine, part unspecified, without perforation or abscess without bleeding; I48.0 Paroxysmal atrial fibrillation; I10 Essential (primary) hypertension; Z86.16 Personal history of COVID-19; Z79.899 Other long term (current) drug therapy; Z86.73 Personal history of transient ischemic attack (TIA), and cerebral infarction without residual deficits; Z88.1 Allergy status to other antibiotic agents; Z79.01 Long term (current) use of anticoagulants; Z87.74 Personal history of (corrected) congenital malformations of heart and circulatory system
CPT/HCPCS: 43752; 74177; 74250; 80048; 80053; 81003; 83605; 83690; 83735; 85025; 85027; 86140; 93005; 96374; 96375; 99285; Q9967